=== PATIENT | male | born 1985 | race Caucasian/White ===

== ENCOUNTER 2017-05-15 12:54 | Inpatient (IN) ==
[2017-05-15] MEDS ORDERED: Ipratropium/Albuterol Neb 3 ML IH ONE (13:15)
--- NOTE | 2017-05-15 13:44 | Emergency Department Note ---
Disposition Clinical Impression: Hypoxia Pneumonia Qualifiers: Pneumonia type: due to unspecified organism Laterality: unspecified laterality Lung location: unspecified part of lung Qualified Code(s): J18.9 - Pneumonia, unspecified organism Sepsis Qualifiers: Sepsis type: sepsis due to unspecified organism Qualified Code(s): A41.9 - Sepsis, unspecified organism Disposition: Admitted As Inpatient Condition: Undetermined Referrals: Roberto Boudreaux MD [Primary Care Provider] - Forms: ED Satisfaction Letter Time of Disposition: 15:19 SOB HPI - General Chief Complaint: ED Shortness of Breath/Dyspnea Stated Complaint: Multiple complaints Time Seen by Provider: 05/15/17 13:10 Source: patient Mode of arrival: ambulatory Limitations: no limitations Nursing Notes Reviewed: Yes Vital Signs Reviewed: Yes - History of Present Illness 31-year-old male with history of chronic pain and arthritis of his back and bilateral lower extremities, arrives [facility] emergency department with ill feeling. He is having generalized myalgias, cough, nasal congestion, headache, subjective fevers and a mild shortness of breath. Patient states this started 2 days ago. Patient states this progressively got worse and he has been unable sleep. Patient denies any other complaints including unilateral leg swelling, chest pain, abdominal pain, nausea, vomiting , history of DVT or PE, recent surgeries or immobilizations. Pt Subjective Complaint: shortness of breath, cough Onset (ago): day(s) (2) Severity: mild, moderate Consistency/Duration: constant, gradually worsening Associated symptoms: Reports: fever, cough, wheezing, sputum production Treatment prior to arrival: none Cough present: Yes Cough Description: Productive Sputum production: Yes Sputum Amount: Small Sputum Color: Cream - Related Data Home oxygen amount: none Home Medications Medication Instructions Recorded Confirmed No Known Home Drugs 05/15/17 05/15/17 Allergies Allergy/AdvReac Type Severity Reaction Status Date / Time adhesive tape Allergy Rash Verified 05/15/17 13:06 All systems ED: reviewed and negative except as stated. Constitutional: Reports: fever, chills, weakness Eyes: Denies: vision change ENT ED: Reports: congestion. Denies: hearing loss Cardiovascular: Reports: dyspnea on exertion, orthopnea. Denies: chest pain, edema Respiratory: Reports: cough, dyspnea, wheezes, sputum production. Denies: hemoptysis, stridor Gastrointestinal: Denies: abdominal pain, nausea, vomiting Genitourinary: Denies: dysuria Musculoskeletal: Reports: arthralgia, myalgia. Denies: back pain, neck pain Integumentary: Denies: rash Neurological: Reports: headache. Denies: weakness, numbness, paresthesias, confusion Past Medical History - Past Medical History Attestation: Yes The following information was validated with the patient. Source: patient Medical history: Reports: other Surgical history: Reports: non-contributory, orthopedic, other (hip reconstructive surgery), other (tonsillectomy; kidney stent and removal) Psychiatric history: Reports: no psych history - Social History Smoking Status: Current every day smoker Smokeless Tobacco Status: No Alcohol use: Reports: none Drug use: Reports: none Physical Exam - General Limitations: no limitations General appearance: alert, in distress (mild respiratory) - Head Head exam: atraumatic, normocephalic, normal inspection - Eye Eye exam: Present: normal appearance, PERRL, EOMI - ENT ENT exam: normal exam, normal oropharynx, mucous membranes moist - Neck Neck exam: Present: normal inspection, full ROM, trachea midline - Chest Chest inspection: Present: normal inspection, symmetric chest wall rise - Respiratory Respiratory exam: Present: respiratory distress (mild), wheezes, other (Coarse breath sounds). Absent: accessory muscle use - Cardiovascular Cardiovascular exam: Present: normal rhythm, tachycardia, normal heart sounds - Abdominal Exam Abdominal exam: Present: soft, Non-Tender. Absent: tenderness, distention, guarding, rebound, rigidity - Extremities Exam Extremities exam: Present: normal inspection, full ROM. Absent: tenderness, pedal edema Course Vital Signs Temperature 98.7 F 05/15/17 13:02 Pulse Rate 106 05/15/17 13:02 Respiratory Rate 24 05/15/17 13:02 Blood Pressure 182/111 05/15/17 13:02 O2 Sat by Pulse Oximetry 86 05/15/17 13:02 Temperature 98.7 F 05/15/17 13:02 Pulse Rate 106 05/15/17 13:02 Respiratory Rate 24 05/15/17 13:48 Blood Pressure 182/111 05/15/17 13:02 O2 Sat by Pulse Oximetry 90 05/15/17 13:48 Oxygen Delivery Oxygen Delivery Room Air Shortness of Breath/Dyspnea - MDM Narrative Medical decision making narrative: Patient demonstrates findings consistent with a pneumonia in the perihilar region upon chest x-ray. In addition the patient was noted to be tachypneic and hypoxic as well as tachycardic. With these findings I am concerned about sepsis on this gentleman. Given the likely concomitance of influenza, I will administer IV doxycycline. We will admit the patient to the hospitalist service. The patient received 1 L IV fluid here in the emergency department. Patient agrees to plan and will be admitted to the hospitalist service. Accepted by Dr. Brown. - Lab Data Lab results reviewed: Yes I reviewed the patient's lab results. Result diagrams: 05/15/17 14:47 Lab Results 05/15/17 05/15/17 Range/Units 14:47 14:47 Sodium 143 (136-145) mEq/L Potassium 4.3 (3.5-4.5) mEq/L Chloride 102 (98-109) mEq/L Carbon Dioxide 30 H (19-29) mEq/L BUN 12 (8-26) mg/dL Creatinine 0.77 (0.72-1.25) mg/dL Est GFR ( Amer) > 60 (> 60) Est GFR (Non-Af Amer) > 60 (> 60) BUN/Creatinine Ratio 16 (6-26) Glucose 89 (70-99) mg/dL Calculated Osmolality 295 (280-300) Lactic Acid 1.0 (0.5-2.2) mmol/L Calcium 9.1 (8.6-10.8) mg/dL - Radiology Data Radiology results reviewed: Yes I reviewed the patient's radiology results. Attestation Statement - Attestation Attestation: I examined this patient and my medical decision-making was reviewed with the Resident Physician. I agree with the documented findings, disposition and treatment plan as described except to the extent set forth below. Meets SIRS but not qSOFA criteria. Still wheezing after first round of Duonebs, 92% on 2LNC, additional Albuterol ordered. Symptoms are classic influenza - pneumonia on CXR could be influenza, staph (in the setting of flu), or standard CAP - Doxy chosen to cover all of these. Accepted by hospitalist for admisison.
[2017-05-15] MEDS ORDERED: 0.9 % Sodium Chloride 1,000 ML IVC ONE (14:24)
[2017-05-15] MEDS ORDERED: Doxycycline 100 MG in 0.9 % Sodium Chloride Mini Bag 100 ML IVPB ONE (14:24)
[2017-05-15 15:08] LABS: BUN/Creatinine Ratio 16 (6-26); Blood Urea Nitrogen 12 mg/dL (8-26); Calcium 9.1 mg/dL (8.6-10.8); Carbon Dioxide 30 mEq/L (19-29); Chloride 102 mEq/L (98-109); Glucose 89 mg/dL (70-99); Osmolality,Calculated 295 (280-300); Potassium 4.3 mEq/L (3.5-4.5); Sodium 143 mEq/L (136-145); eGFR For African Americans > 60 (> 60); eGFR For Non-African Americans > 60 (> 60)
[2017-05-15] MEDS ORDERED: Albuterol 2.5 MG/3 ML NEBULIZER IH STA (15:52)
[2017-05-15] MEDS ORDERED: Naloxone 0.4 MG/ML INJ IVP PRN (20:19)
[2017-05-15] MEDS ORDERED: Ondansetron 4 MG/2 ML VIAL IVP PRN (20:19)
--- NOTE | 2017-05-15 20:25 | Internal Med History&Physical ---
Date of Encounter: 05/15/17 Time of Encounter: 20:15 Assessment and Plan (1) Pneumonia Current visit: Yes Status: Acute Community-acquired pneumonia, present on admission, likely bacterial Continue DuoNeb breathing treatment, empiric IV Rocephin, IV azithromycin and O2 via NC Cultures - pending Chest x-ray - perihilar airspace disease, likely infection or edema Cardiac telemetry, lives in a.m., monitor closely Qualifiers: Pneumonia type: due to unspecified organism Laterality: unspecified laterality Lung location: unspecified part of lung Qualified Code(s): J18.9 - Pneumonia, unspecified organism (2) Morbid obesity with BMI of 60.0-69.9, adult Current visit: Yes Status: Acute Obesity with BMI of 64.8 Advised lifestyle modification (3) DVT prophylaxis Current visit: Yes Status: Acute Heparin subcutaneous Internal Medicine - H&P: HPI Chief complaint: Shortness of breath and cough Admitted From: Emergency Dept Plans for Post Hospital Care: Home History of present illness: Mr. Zamora is a 31 year old male with no significant past medical history. Patient presents to the ED with complaints of shortness of breath, cough and sinus congestion. Examined in the room. Patient is awake and alert. Not in any distress. Able to provide history. No family members at bedside. Patient states his symptoms of cough and shortness of breath and sinus congestion started about 2-3 days ago. Symptoms are gradually worsening. Shortness of breath is worse with exertion. He also complains of subjective fever. He also has some associated wheezing. And states his cough is nonproductive. Patient denies chest pain or headache or dizziness. No other aggravating or alleviating factors. No other associated symptoms. No other acute complaints. Initial workup in the ED is negative. Chest x-ray shows perihilar airspace disease likely infection or edema. Patient is being admitted for community- acquired pneumonia. He will need IV antibiotics and breathing treatment. Patient has been explained about his condition and plan of care in detail. He understood and agreed. No unanswered questions. CODE STATUS full code. Past Med Surg Social Fam HX - Past Medical History Medical history: other Psychiatric history: no psych history - Past Surgical History Surgical History: orthopedic, other, other - Social History Smoking Status: Current every day smoker Smokeless Tobacco Status: No Alcohol use: none Drug use: none Internal Medicine - H&P: Meds No Known Home Drugs 05/15/17 [History] 3 Allergy/AdvReac Type Severity Reaction Status Date / Time adhesive tape Allergy Rash Verified 05/15/17 13:06 All Systems PM: A 10-system review of systems was performed and is negative for pertinent findings except as documented above in the HPI. - Constitutional Constitutional: fatigue, fever(s), no weakness - EENT Eyes: no blurry vision - Cardiovascular Cardiovascular ROS IM: dyspnea, dyspnea on exertion, no chest pain, no diaphoresis, no edema, no lightheadedness, no orthopnea, no palpitations, no syncope - Respiratory Respiratory: cough, dyspnea, dyspnea on exertion, wheezing, chest congestion, no hemoptysis - Gastrointestinal Gastrointestinal: no abdominal pain, no bloating, no cramping, no diarrhea, no hematemesis, no hematochezia, no loose stools, no nausea, no vomiting - Genitourinary Genitourinary ROS male: no dysuria - Neurological Neurological ROS: no abnormal gait, no confusion, no dizziness, no loss of vision, no numbness - Constitutional Vitals: Temp Pulse Resp BP Pulse Ox 97.3 F L 80 16 133/77 92 05/15/17 18:49 05/15/17 18:49 05/15/17 18:49 05/15/17 18:49 05/15/17 18:49 General appearance: Present: cooperative, A&O X 3, morbidly obese, pleasant, no acute distress, answers questions appropriately - Head Head exam: Present: atraumatic - Eye Eye exam: Present: EOMI - ENT ENT exam: Present: mucous membranes dry - Respiratory Respiratory exam: Present: wheezes (Bilateral). Absent: accessory muscle use, chest wall tenderness, rales, respiratory distress, rhonchi, tachypnea - Cardiovascular Cardiovascular exam: Present: RRR, +S1, +S2 - GI/Abdominal GI/Abdominal exam: Present: soft. Absent: distended, firm, guarding, tenderness - Extremities Exam Extremities exam: Present: pedal edema (Bilateral 2+ edema lower legs), radial pulses palpable and symmetrical. Absent: calf tenderness, cyanotic - Neurological Exam Neurological exam: Present: alert, oriented X3, no focal deficits. Absent: facial droop, speech deficit Internal Med - H&P Results - Labs CBC & Chem 7: 05/15/17 20:40 05/15/17 14:47
[2017-05-15 20:49] LABS: Basophils # 0.1 K/mcL (0.0-0.2); Basophils % 0.6 %; Eosinophils # 0.3 K/mcL (0.0-0.6); Hematocrit 52.7 % (37.5-50.1); Hemoglobin 16.3 g/dL (12.9-16.9); Immature Granulocytes % 0.7 % (0-4); Lymphocytes # 2.2 K/mcL (0.6-4.6); Lymphocytes % 26.1 %; Mean Corpuscular HGB Conc 30.9 g/dL (31.6-35.5); Mean Corpuscular Hemoglobin 27.8 pg (28.0-33.3); Mean Corpuscular Volume 89.8 fL (83.0-100.0); Mean Platelet Volume 9.2 fL (9.4-12.4); Monocytes # 0.8 K/mcL (0.0-1.3); Monocytes % 9.6 %; Platelet Count 162 K/mcL (140-400); Red Blood Count 5.87 M/mcL (4.19-5.50); Red Cell Distribution Width 13.6 % (11.5-14.5)
[2017-05-15] MEDS: cefTRIAXone 1,000 MG in Water for inj. (sterile) 10 ML IVP SCH (21:13)
[2017-05-15] MEDS: 0.9 % Sodium Chloride 1,000 ML IVC SCH (21:14)
[2017-05-15] MEDS: Acetaminophen 325 MG TABLET PO PRN (21:17)
[2017-05-15] MEDS: Azithromycin 500 MG in D5% in Water 250 ML IVPB SCH (21:17)
[2017-05-15] MEDS: *HR* Heparin 5,000 UNIT/ML VIAL SQ SCH (21:17)
[2017-05-15] MEDS: Ipratropium/Albuterol Neb 3 ML IH SCH (21:41)
[2017-05-16] MEDS: Ipratropium/Albuterol Neb 3 ML IH SCH ×7 (00:04→23:39)
[2017-05-16] MEDS: Nicotine 21 MG PATCH.TD24 TD SCH ×2 (00:27→09:29)
[2017-05-16] MEDS: *HR* Morphine 2 MG/ML SYRINGE IVP PRN (02:19)
[2017-05-16 04:31] LABS: Basophils # 0.1 K/mcL (0.0-0.2); Basophils % 0.7 %; Eosinophils # 0.2 K/mcL (0.0-0.6); Hemoglobin 16.6 g/dL (12.9-16.9); Immature Granulocytes % 0.8 % (0-4); Lymphocytes # 1.7 K/mcL (0.6-4.6); Lymphocytes % 18.8 %; Mean Corpuscular HGB Conc 31.3 g/dL (31.6-35.5); Mean Corpuscular Hemoglobin 28.6 pg (28.0-33.3); Mean Corpuscular Volume 91.4 fL (83.0-100.0); Mean Platelet Volume 9.2 fL (9.4-12.4); Monocytes # 0.8 K/mcL (0.0-1.3); Monocytes % 9.3 %; Neutrophils # 6.1 K/mcL (1.6-8.9); Platelet Count 149 K/mcL (140-400); Segmented Neutrophils % 68.4 %
[2017-05-16 04:41] LABS: BUN/Creatinine Ratio 18 (6-26); Blood Urea Nitrogen 15 mg/dL (8-26); Calcium 8.8 mg/dL (8.6-10.8); Carbon Dioxide 31 mEq/L (19-29); Chloride 98 mEq/L (98-109); Glucose 136 mg/dL (70-99); Magnesium 2.2 mg/dL (1.6-2.6); Osmolality,Calculated 297 (280-300); Potassium 4.6 mEq/L (3.5-4.5); Sodium 142 mEq/L (136-145); eGFR For African Americans > 60 (> 60); eGFR For Non-African Americans > 60 (> 60)
[2017-05-16] MEDS: *HR* Heparin 5,000 UNIT/ML VIAL SQ SCH ×3 (05:26→21:40)
[2017-05-16] MEDS: Famotidine 20 MG/2 ML VIAL IVP SCH ×2 (05:26→18:58)
[2017-05-16] MEDS: Acetaminophen 325 MG TABLET PO PRN ×2 (05:38→12:03)
--- NOTE | 2017-05-16 06:51 | Electrocardiograph Report ---
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
[2017-05-16] MEDS: 0.9 % Sodium Chloride 1,000 ML IVC SCH (08:04)
--- NOTE | 2017-05-16 08:29 | Internal Med Progress Note ---
<Sloan Nielson - Last Filed: 05/16/17 08:27> Date of Encounter: 05/16/17 Time of Encounter: 08:27 - Assessment and plan (1) Community acquired pneumonia Current Visit: Yes Status: Acute Assessment and plan: patient came in with complaint of shortness of breath, cough, sinus congestion CXR showed perihilar congestion, concern or pneumonia does not meet sepsis criteria at this time lactic acid 1 Plan: ceftriaxone/azithromycin day 2 wean off oxygen as tolerated BiPAP at night needs outpatient sleep study patient was desat earlier this morning, improved with DuoNebs keep DuoNebs scheduled for now. Qualifiers: Laterality: unspecified laterality Qualified Code(s): J18.9 - Pneumonia, unspecified organism (2) Morbid obesity with BMI of 60.0-69.9, adult Current Visit: Yes Status: Acute Assessment and plan: lifestyle modifications advised. could have component of sleep apnea (3) Tobacco abuse Current Visit: Yes Status: Acute Assessment and plan: patient has been smoking 1PPD for the psat 6-7 years Plan: smoking cessation advised nicotine patch PRN (4) DVT prophylaxis Current Visit: Yes Status: Acute Assessment and plan: heparin SQ - Subjective Interval history: 30M evluated at bedside. he denies nasuea, vomiting, diarrhea, fever, chills, chest pain. he admits to shortness of breath. he denies any further problems today. - Constitutional Vitals: Temp Pulse Resp BP Pulse Ox 98.7 F 90 18 158/87 96 05/16/17 04:49 05/16/17 04:49 05/16/17 08:04 05/16/17 04:49 05/16/17 08:04 General appearance: Present: cooperative, A&O X 3, morbidly obese, pleasant, no acute distress, answers questions appropriately Exam: morbidly obese - Head Head exam: Present: atraumatic, normocephalic - Neck Neck exam general surgery: Present: supple, trachea midline - Respiratory Respiratory exam: Present: CTAB - Cardiovascular Cardiovascular exam: Present: RRR, +S1, +S2 - GI/Abdominal GI/Abdominal exam: Present: distended, normal bowel sounds, soft, tenderness Additional comments: obese, striae present. - Extremities Exam Extremities exam: Absent: cyanotic, pedal edema Additional comments: venous stasis present. - Neurological Exam Neurological exam: Present: alert, oriented X3, no focal deficits - Psychiatric Psychiatric exam: Present: normal affect, normal mood - Skin Skin exam: Present: intact Internal Medicine: Result - Labs CBC & Chem 7: 05/16/17 04:08 05/16/17 04:08 Labs: Short CBC 05/15/17 05/16/17 Range/Units 20:40 04:08 WBC 8.3 8.9 (4.3-11.1) K/mcL Hgb 16.3 16.6 (12.9-16.9) g/dL Hct 52.7 H 53.0 H (37.5-50.1) % Plt Count 162 149 (140-400) K/mcL Neutrophils # 5.0 6.1 (1.6-8.9) K/mcL BMP 05/16/17 04:08 Sodium 142 Potassium 4.6 H Chloride 98 Carbon Dioxide 31 H BUN 15 Creatinine 0.83 Glucose 136 H Calcium 8.8 Consult Discharge Plan - Plan [place] [facility] [place] - <Rodolfo Osorio - Last Filed: 05/16/17 17:57> Date of Encounter: 05/16/17 - Assessment and plan (1) Acute respiratory failure with hypoxia Current Visit: Yes Status: Acute (2) Community acquired pneumonia Current Visit: Yes Status: Acute Qualifiers: Laterality: unspecified laterality Qualified Code(s): J18.9 - Pneumonia, unspecified organism (3) Tobacco abuse Current Visit: Yes Status: Acute (4) Cephalgia Current Visit: Yes Status: Acute Qualifiers: Headache type: tension-type Headache chronicity pattern: acute headache Intractability: intractable Qualified Code(s): G44.201 - Tension-type headache , unspecified, intractable (5) Morbid obesity with BMI of 60.0-69.9, adult Current Visit: Yes Status: Acute (6) TORIN (obstructive sleep apnea) Current Visit: Yes Status: Suspected - Constitutional Vitals: Temp Pulse Resp BP Pulse Ox 98.2 F 91 16 153/85 92 05/16/17 16:22 05/16/17 16:22 05/16/17 16:22 05/16/17 16:22 05/16/17 16:22 Internal Medicine: Result - Labs CBC & Chem 7: 05/16/17 04:08 12/06/17 04:08 Labs: Short CBC 05/15/17 05/16/17 Range/Units 20:40 04:08 WBC 8.3 8.9 (4.3-11.1) K/mcL Hgb 16.3 16.6 (12.9-16.9) g/dL Hct 52.7 H 53.0 H (37.5-50.1) % Plt Count 162 149 (140-400) K/mcL Neutrophils # 5.0 6.1 (1.6-8.9) K/mcL BMP 05/16/17 04:08 Sodium 142 Potassium 4.6 H Chloride 98 Carbon Dioxide 31 H BUN 15 Creatinine 0.83 Glucose 136 H Calcium 8.8 - Attending Attestation I examined this patient and my medical decision-making was reviewed with the Resident Physician on 05/16/17. I agree with the documented findings, disposition and treatment plan as described except to the extent set forth below. Mr Zamora is currently admitted for community acquired pneumonia. He most likely has TORIN as well. He remains moderate to high risk due to potential for worsening respiratory status. Mr Zamora is complaining of a headache. No fever or chills at this time. Remains dyspneic and hypoxic. Feels somewhat better sitting up on edge of bed. Still with cough as well. No GI issues. Exam Alert. Mod distress due to headache. Mucus membranes dry Heart reg and distant. Lungs diminished throughout. Abd soft. Obese I/P 1. Hypoxia - O2 sat was 86% on RA on admit. Supplemental oxygen ordered. 2. Pneumonia on IV abx 3. Cephalgia - PRN med. Check RIP. Further diagnoses and plan as above.
[2017-05-16] MEDS ORDERED: D5% in Water 1,000 ML IVC PRN (13:28)
[2017-05-16] MEDS ORDERED: Dextrose Gel 15 GM PO PRN ×2 (13:28)
[2017-05-16] MEDS ORDERED: *HR* Dextrose 50 % in Water (Syg) 50 ML SYRINGE IVP PRN (13:28)
[2017-05-16] MEDS: Ketorolac 15 MG/ML VIAL IVP PRN ×2 (14:37→21:55)
[2017-05-16] MEDS: Insulin LISPRO 300 UNITS/3 ML VIAL SQ SCH (16:30)
[2017-05-16] MEDS ORDERED: Insulin LISPRO 300 UNITS/3 ML VIAL SQ SCH (21:00)
[2017-05-16] MEDS: Azithromycin 500 MG in D5% in Water 250 ML IVPB SCH (21:41)
[2017-05-16] MEDS: cefTRIAXone 1,000 MG in Water for inj. (sterile) 10 ML IVP SCH (21:41)
[2017-05-17] MEDS: Ketorolac 15 MG/ML VIAL IVP PRN ×2 (03:24→11:37)
[2017-05-17] MEDS: Nicotine 21 MG PATCH.TD24 TD SCH (03:24)
[2017-05-17] MEDS: Ipratropium/Albuterol Neb 3 ML IH SCH ×3 (04:00→11:12)
[2017-05-17] MEDS: *HR* Heparin 5,000 UNIT/ML VIAL SQ SCH ×2 (05:45→13:38)
[2017-05-17] MEDS: Famotidine 20 MG/2 ML VIAL IVP SCH (05:45)
[2017-05-17 06:26] LABS: Basophils % 0.5 %; Eosinophils # 0.4 K/mcL (0.0-0.6); Eosinophils % 4.3 %; Hematocrit 49.5 % (37.5-50.1); Hemoglobin 15.6 g/dL (12.9-16.9); Immature Granulocytes % 0.5 % (0-4); Lymphocytes # 2.3 K/mcL (0.6-4.6); Lymphocytes % 26.7 %; Mean Corpuscular HGB Conc 31.5 g/dL (31.6-35.5); Mean Corpuscular Hemoglobin 28.5 pg (28.0-33.3); Mean Corpuscular Volume 90.3 fL (83.0-100.0); Mean Platelet Volume 9.1 fL (9.4-12.4); Monocytes # 0.5 K/mcL (0.0-1.3); Monocytes % 6.3 %; Neutrophils # 5.2 K/mcL (1.6-8.9); Platelet Count 149 K/mcL (140-400); Red Blood Count 5.48 M/mcL (4.19-5.50); Red Cell Distribution Width 13.5 % (11.5-14.5); Segmented Neutrophils % 61.7 %
[2017-05-17 06:30] LABS: Hemoglobin A1C 5.6 %
[2017-05-17 07:03] LABS: Bilirubin,Urine Negative (Negative); Blood,Urine Negative (Negative); Clarity,Urine Clear (Clear); Color,Urine Yellow (Yellow); Glucose,Urine (UA) Normal (Normal); Ketones,Urine Negative (Negative); Leukocyte Esterase,Urine Negative (Negative); Nitrite,Urine Negative (Negative); Protein,Urine Negative (Neg-Trace); Specific Gravity,Urine 1.028 (1.010-1.025); Urobilinogen,Urine Normal (Normal)
[2017-05-17] MEDS: *HR* Morphine 2 MG/ML SYRINGE IVP PRN (07:43)
[2017-05-17] MEDS: Insulin LISPRO 300 UNITS/3 ML VIAL SQ SCH ×2 (07:44→11:33)
[2017-05-17 08:13] LABS: BUN/Creatinine Ratio 21 (6-26); Blood Urea Nitrogen 16 mg/dL (8-26); Calcium 9.1 mg/dL (8.6-10.8); Carbon Dioxide 31 mEq/L (19-29); Chloride 100 mEq/L (98-109); Glucose 124 mg/dL (70-99); Osmolality,Calculated 301 (280-300); Potassium 4.6 mEq/L (3.5-4.5); Sodium 144 mEq/L (136-145); eGFR For African Americans > 60 (> 60); eGFR For Non-African Americans > 60 (> 60)
[2017-05-17 10:54] VITALS: BP 173/96
--- NOTE | 2017-05-17 13:41 | Discharge Summary ---
<Sloan Nielson - Last Filed: 05/17/17 14:51> Date of Encounter: 05/17/17 Time of Encounter: 13:35 - Discharge Diagnosis (1) Community acquired pneumonia Priority: Primary Status: Acute Qualifiers: Laterality: unspecified laterality Qualified Code(s): J18.9 - Pneumonia, unspecified organism (2) Morbid obesity with BMI of 60.0-69.9, adult Priority: Secondary Status: Acute (3) Tobacco abuse Priority: Secondary Status: Acute (4) DVT prophylaxis Priority: Secondary Status: Acute - Discharge Medications Prescriptions: Amoxicillin/Clavulanate [Augmentin] 875 mg PO BIDWM #10 tablet Azithromycin [Zithromax Tri-Preston] 500 mg PO DAILY #1 tablet GuaiFENesin ER [Mucinex] 1,200 mg PO BID #30 tbbp.12hr Nicotine Patch [Nicoderm] 21 mg TD DAILY #30 patch.td24 Home Medications: Amoxicillin/Clavulanate [Augmentin] 875 mg PO BIDWM #10 tablet 05/17/17 [Rx] Azithromycin [Zithromax Tri-Preston] 500 mg PO DAILY #1 tablet 05/17/17 [Rx] GuaiFENesin ER [Mucinex] 1,200 mg PO BID #30 tbbp.12hr 05/17/17 [Rx] Nicotine Patch [Nicoderm] 21 mg TD DAILY #30 patch.td24 05/17/17 [Rx] Allergies/Adverse Reactions: 3 Allergy/AdvReac Type Severity Reaction Status Date / Time adhesive tape Allergy Rash Verified 05/15/17 13:06 Date of admission: 05/15/17 20:19 Primary care physician: Roberto Boudreaux MD Consults: 05/16/17 07:28 Consult to Wick Tender [CONS] Routine Reason for SW Consult: pt states he is homeless. lives in [facility] resources. 05/16/17 07:54 Consult to Respiratory Therapy [CONS] Routine Reason for Consult: low 02 sats when sleeping, morbid obesity, dx of pneumonia Time Notified: 07:55 Call Completed: Yes Discharging clinician: Sloan Nielson Anticipated date of discharge: 05/17/17 - Patient Status Disposition: Home, Self-Care Condition: Fair Functional capacity at discharge: independent ambulation Overall status at discharge: patient is progressing back to baseline - Discharge Instructions Follow Up With: Roberto Boudreaux MD [Primary Care Provider] - 05/30/17 4:30 pm Additional Instructions: follow up with PCP within one week of discharge you will need outpatient sleep study done return to the emergency department if you develop fever, chills, chest pain, shortness of breath please finish your antibiotics as prescribed. - Diet and Activity Activity: increase activity as tolerated Diet: low fat, low cholesterol Hospital course: Mr. Zamora is a 31 year old male with no significant PMhx. Patient [facility]17 with chief complaint of shortness of breath, cough, sinus congestion x2-3 days. Patient was admitted to the hospital for community acquired pneumonia. CXR showed perihilar airspace disease. Patient was started on antibiotics and breathing treatments. By day 2 of his hospitalization, patient's breathing had significantly improved. He did not require any further oxygen via nasal canula. He was anxious to go home. patient was counseled extensively on lifestyle modifications and tobacco cessation. He was also told that he will need an outpatient sleep study to rule out obstructive sleep apnea. patient had no acute events during his hospitalization and was discharged home in stable condition. Patient was offered overnight BiPAP qualification during his hospitalization, but he declined. Plan: follow up with PCP within one week of discharge you will need outpatient sleep study done return to the emergency department if you develop fever, chills, chest pain, shortness of breath please finish your antibiotics as prescribed. Time spent discussing smoking cessation with patient: more than 10 minutes - Time Spent with Patient Total time spent providing and/or coordinating discharge services: Greater than 30 minutes - Constitutional Vitals: Temp Pulse Resp BP Pulse Ox 97.9 F 86 16 173/96 91 05/17/17 10:49 05/17/17 10:49 05/17/17 11:12 05/17/17 10:49 05/17/17 11:12 General appearance: Present: cooperative, A&O X 3, morbidly obese, pleasant, no acute distress, answers questions appropriately - Head Head exam: Present: atraumatic, normocephalic - Neck Neck exam general surgery: Present: supple, trachea midline - Respiratory Respiratory exam: Present: decreased breath sounds - Cardiovascular Cardiovascular exam: Present: RRR, +S1, +S2 - GI/Abdominal GI/Abdominal exam: Present: normal bowel sounds, soft. Absent: distended, tenderness - Extremities Exam Extremities exam: Absent: cyanotic, pedal edema - Neurological Exam Neurological exam: Present: alert, oriented X3, no focal deficits - Psychiatric Psychiatric exam: Present: anxious - Skin Skin exam: Present: intact <Rodolfo Osorio - Last Filed: 05/17/17 16:02> Date of Encounter: 05/17/17 - Discharge Diagnosis (1) Acute respiratory failure with hypoxia Priority: Primary Status: Acute (2) Community acquired pneumonia Status: Acute Qualifiers: Laterality: unspecified laterality Qualified Code(s): J18.9 - Pneumonia, unspecified organism (3) Tobacco abuse Status: Acute (4) Cephalgia Priority: Secondary Status: Chronic Qualifiers: Headache type: tension-type Headache chronicity pattern: chronic headache Intractability: intractable Qualified Code(s): G44.221 - Chronic tension- type headache, intractable (5) Morbid obesity with BMI of 60.0-69.9, adult Status: Acute (6) TORIN (obstructive sleep apnea) Priority: Secondary Status: Suspected Date of admission: 05/15/17 20:19 Primary care physician: Roberto Boudreaux MD Consults: 05/16/17 07:28 Consult to Wick Tender [CONS] Routine Reason for SW Consult: pt states he is homeless. lives in [facility]. [facility]. 05/16/17 07:54 Consult to Respiratory Therapy [CONS] Routine Reason for Consult: low 02 sats when sleeping, morbid obesity, dx of pneumonia Time Notified: 07:55 Call Completed: Yes Hospital course: Mr. Zamora is a 31 year old male - Time Spent with Patient Total time spent providing and/or coordinating discharge services: 38min - Constitutional Vitals: Temp Pulse Resp BP Pulse Ox 97.9 F 86 16 173/96 91 05/17/17 10:49 05/17/17 10:49 05/17/17 11:12 05/17/17 10:49 05/17/17 11:12 - Attending Attestation I examined this patient and my medical decision-making was reviewed with the Resident Physician on 05/17/17. I agree with the documented findings, disposition and treatment plan as described except to the extent set forth below. Mr Zamora has been hospitalized for acute pneumonia and TORIN. He has improved overnight and is now afebrile with stable vitals. He is to have outpatient follow up and was planning to discuss his chronic headaches and need for sleep study. He is concerned as his grandmother was admitted to hospital for CVA in [place] yesterday and he is going to drive there. He is also having issues with R nares feeling clogged. He cannot wear bipap here (noise caused headache) . Exam Alert. Comfortable today Mucus membranes dry Heart reg Lungs without wheeze or rhonchi now Abd soft Plan D/C home today Complete abx course Follow with PCP for sleep study and work up of chronic headaches Advised nasal saline spray for nasal congestion.
== END 2017-05-17 13:55 | disposition home or self-care (01) | DRG 139 ==
LOC: EMEROO 12:54 → 3ANU 12:54
PROVIDERS: ADMIT Hospitalist; ATTEND Internal Medicine

== ENCOUNTER 2017-10-17 21:54 | Observation (INO) ==
[2017-10-17 23:36] LABS: Basophils # 0.1 K/mcL (0.0-0.2); Basophils % 0.5 %; Eosinophils # 0.3 K/mcL (0.0-0.6); Eosinophils % 3.1 %; Hemoglobin 16.6 g/dL (12.9-16.9); Immature Granulocytes % 0.6 % (0-4); Lymphocytes # 1.7 K/mcL (0.6-4.6); Lymphocytes % 15.6 %; Mean Corpuscular HGB Conc 33.2 g/dL (31.6-35.5); Mean Corpuscular Volume 90.3 fL (83.0-100.0); Mean Platelet Volume 9.8 fL (9.4-12.4); Monocytes # 0.7 K/mcL (0.0-1.3); Monocytes % 6.5 %; Platelet Count 177 K/mcL (140-400); Red Blood Count 5.54 M/mcL (4.19-5.50); Red Cell Distribution Width 13.4 % (11.5-14.5); Segmented Neutrophils % 73.7 %
[2017-10-17 23:46] LABS: Alanine Aminotransferase 19 Units/L (7-52); Albumin 3.8 g/dL (3.5-5.7); Albumin/Globulin Ratio 1.7 (1.1-2.2); Alkaline Phosphatase 63 Units/L (34-104); Aspartate Amino Transferase 13 Units/L (13-39); BUN/Creatinine Ratio 19 (6-26); Bilirubin,Direct 0.1 mg/dL (0.0-0.2); Bilirubin,Indirect 0.3 mg/dL (0.0-1.2); Bilirubin,Total 0.4 mg/dL (0.3-1.0); Blood Urea Nitrogen 15 mg/dL (6-20); Calcium 9.1 mg/dL (8.6-10.3); Carbon Dioxide 33 mEq/L (23-29); Chloride 103 mEq/L (98-107); Globulin 2.3 g/dL (2.4-3.5); Glucose 181 mg/dL (70-105); Osmolality,Calculated 305 (280-300); Potassium 3.7 mEq/L (3.5-5.1); Sodium 145 mEq/L (136-145); Total Protein 6.1 g/dL (6.4-8.9); eGFR For African Americans > 60 (> 60); eGFR For Non-African Americans > 60 (> 60)
[2017-10-18 00:15] LABS: Bilirubin,Urine Negative (Negative); Blood,Urine Negative (Negative); Clarity,Urine Clear (Clear); Color,Urine Yellow (Yellow); Glucose,Urine (UA) Normal (Normal); Ketones,Urine Negative (Negative); Leukocyte Esterase,Urine Negative (Negative); Nitrite,Urine Negative (Negative); Protein,Urine Trace mg/dL (Neg-Trace); Specific Gravity,Urine 1.026 (1.010-1.025); Urobilinogen,Urine Normal (Normal)
[2017-10-18 00:19] LABS: Bacteria,Urine None Seen per hpf (None-Few); Hyaline Casts,Urine None Seen per lpf (None-Few); RBC,Urine 0-3 per hpf (0-3); Squamous Epithelial Cell,Urine Moderate per lpf (None-Few); WBC,Urine 0-3 per hpf (0-3)
[2017-10-18] MEDS ORDERED: Furosemide 40 MG/4 ML VIAL IVP STA (00:42)
--- NOTE | 2017-10-18 01:14 | Emergency Department Note ---
Disposition Clinical Impression: Anasarca, Hypoxia, Pulmonary vascular congestion Fluid overload Qualifiers: Hypervolemia type: unspecified Qualified Code(s): E87.70 - Fluid overload, unspecified Disposition: Admitted As Inpatient Condition: Good Referrals: Roberto Boudreaux MD [Primary Care Provider] - General Adult HPI - General Chief complaint: ED General Medical Stated complaint: Swelling Time Seen by Provider: 10/17/17 22:45 Source: patient Limitations: no limitations Nursing Notes Reviewed: Yes Vital Signs Reviewed: Yes - History of Present Illness HPI Narrative: Patient presents today for evaluation of swelling. Patient states that he was recently seen here in the hospital in transfer to [facility] secondary to concern for cellulitis and not able to fit in our CT scanner. Patient was unable to fit in her CT scan are as well however was treated for cellulitis with vancomycin and Zosyn. The patient states that he was discharged with antibiotics which on discharge summary appear to be doxycycline. He states that his redness is abdomen is chronic low which has typically changed in color. His concern is that his abdomen which normally fits underneath his shirt is significantly more edematous. He presses on his abdomen and is able to his fingerprints. Pain Scale: 8 - Related Data Home Medications Medication Instructions Recorded Confirmed Aleve 08/13/17 Imitrex 08/13/17 Protonix 08/13/17 Vicodin 08/13/17 Previous Rx's Medication Instructions Recorded Sulfamethoxazole/Trimeth DS 1 each PO BID #14 tablet 08/13/17 [Bactrim DS] Allergies Allergy/AdvReac Type Severity Reaction Status Date / Time adhesive tape Allergy Rash Verified 10/15/17 10:19 Review of Systems: CONSTITUTIONAL: Generalized swelling No weight loss, fever, chills, weakness or fatigue. HEENT: Eyes: No visual changes. Ears, Nose, Throat: No hearing loss, difficulty talking or unable to swallow. SKIN: No rash or itching. CARDIOVASCULAR: No chest pain, chest pressure or chest discomfort. RESPIRATORY: No shortness of breath, cough or sputum. GASTROINTESTINAL: No anorexia, nausea, vomiting or diarrhea. No abdominal pain or blood. GENITOURINARY: No burning on urination or hematuria. NEUROLOGICAL: No headache, dizziness, syncope, paralysis, ataxia, numbness or tingling in the extremities. No change in bowel or bladder control. MUSCULOSKELETAL: Chronic back pain Past Medical History - Past Medical History Medical history: Reports: arthritis, asthma, COPD, migraine Surgical history: Reports: orthopedic, other, other Psychiatric history: Reports: no psych history - Social History Smoking Status: Current every day smoker Smokeless Tobacco Status: No Alcohol use: Reports: none Drug use: Reports: none Physical Exam General: Well appearing, nontoxic, no acute distress Head: Normocephalic Atraumatic Eyes: PERRL, EOMI ENT: Airway patent, no stridor Neck: supple, no meningismus Chest: Mild rales Cardiac: Regular rate and rhythm, no murmurs, rubs or gallops; pitting edema to the lower extremities Abdomen: Pitting edema to the abdomen soft, nontender, nondistended; no guarding , rebound, or tenderness to percussion Musculoskeletal: Calves symmetric, nontender, no palpable cord Skin: No rash, normal skin tone Neuro: Alert and Oriented to person, place, and time; No focal deficit, CN 2-12 symmetric and intact - General Limitations: no limitations General appearance: alert, in no apparent distress Course - Reevaluation(s) Reevaluation #1: Patient's discharge summary shows evaluation of cellulitis. Patient did receive antibiotics and fluid within the emergency department. Patient is hypoxic at 84%. Patient does not complain of shortness of breath or hypoxic type symptoms. Patient is placed on 2 L nasal cannula with improvement in the 90s. Chest x-ray shows mild pulmonary vascular congestion. Patient will be admitted for hypoxia and fluid overload. - Consultations Consultation #1: Discussed the hospitalist. Patient accepted for admission. Vital Signs Temperature 98.3 F 10/17/17 22:28 Pulse Rate 109 10/17/17 22:28 Respiratory Rate 24 10/17/17 22:28 Blood Pressure 145/90 10/17/17 22:28 O2 Sat by Pulse Oximetry 89 10/17/17 22:28 Temperature 98.3 F 10/17/17 22:28 Pulse Rate 120 10/18/17 00:53 Respiratory Rate 18 10/18/17 00:53 Blood Pressure 140/78 10/18/17 00:53 O2 Sat by Pulse Oximetry 89 10/18/17 00:53 Oxygen Delivery Oxygen Delivery Room Air Medical Decision Making - Lab Data Result diagrams: 10/17/17 22:44 10/17/17 22:44 Lab Results 10/17/17 10/17/1710/17/18 Range/Units 22:44 22:44 22:44 WBC 10.8 (4.3-11.1) K/mcL RBC 5.54 H (4.19-5.50) M/mcL Hgb 16.6 D (12.9-16.9) g/dL Hct 50.0 (37.5-50.1) % MCV 90.3 (83.0-100.0) fL MCH 30.0 (28.0-33.3) pg MCHC 33.2 (31.6-35.5) g/dL RDW 13.4 (11.5-14.5) % Plt Count 177 (140-400) K/mcL MPV 9.8 (9.4-12.4) fL Immature Gran % 0.6 (0-4) % Seg Neutrophils % 73.7 % Lymphocytes % 15.6 % Monocytes % 6.5 % Eosinophils % 3.1 % Basophils % 0.5 % Neutrophils # 8.0 (1.6-8.9) K/mcL Lymphocytes # 1.7 (0.6-4.6) K/mcL Monocytes # 0.7 (0.0-1.3) K/mcL Eosinophils # 0.3 (0.0-0.6) K/mcL Basophils # 0.1 (0.0-0.2) K/mcL Sodium 145 (136-145) mEq/L Potassium 3.7 (3.5-5.1) mEq/L Chloride 103 (98-107) mEq/L Carbon Dioxide 33 H (23-29) mEq/L BUN 15 (6-20) mg/dL Creatinine 0.81 (0.70-1.30) mg/dL Est GFR ( Amer) > 60 (> 60) Est GFR (Non-Af Amer) > 60 (> 60) BUN/Creatinine Ratio 19 (6-26) Glucose 181 H (70-105) mg/dL Calculated Osmolality 305 H (280-300) Calcium 9.1 (8.6-10.3) mg/dL Total Bilirubin 0.4 (0.3-1.0) mg/dL Direct Bilirubin 0.1 (0.0-0.2) mg/dL Indirect Bilirubin 0.3 (0.0-1.2) mg/dL AST 13 (13-39) Units/L ALT 19 (7-52) Units/L Alkaline Phosphatase 63 (34-104) Units/L Troponin I 0.03 (< 0.04) ng/mL B-Natriuretic Peptide (Less than 100) pg/mL Serum Total Protein 6.1 L (6.4-8.9) g/dL Albumin 3.8 (3.5-5.7) g/dL Globulin 2.3 L (2.4-3.5) g/dL Albumin/Globulin Ratio 1.7 (1.1-2.2) Urine Color (Yellow) Urine Clarity (Clear) Urine pH (5.0-8.0) pH Units Ur Specific [place] (1.010-1.025) Urine Protein (Neg-Trace) mg/dL Urine Glucose (UA) (Normal) mg/dL Urine Ketones (Negative) mg/dL Urine Blood (Negative) Urine Nitrite (Negative) Urine Bilirubin (Negative) Urine Urobilinogen (Normal) mg/dL Ur Leukocyte Esterase (Negative) Urine Microscopic RBC (0-3) per hpf Urine Microscopic WBC (0-3) per hpf Ur Squamous Epith Cells (None-Few) per lpf Urine Bacteria (None-Few) per hpf Hyaline Casts (None-Few) per lpf Ur Culture Indicated? (NO) 10/17/17 10/18/17 Range/Units 22:44 00:05 WBC (4.3-11.1) K/mcL RBC (4.19-5.50) M/mcL Hgb (12.9-16.9) g/dL Hct (37.5-50.1) % MCV (83.0-100.0) fL MCH (28.0-33.3) pg MCHC (31.6-35.5) g/dL RDW (11.5-14.5) % Plt Count (140-400) K/mcL MPV (9.4-12.4) fL Immature Gran % (0-4) % Seg Neutrophils % % Lymphocytes % % Monocytes % % Eosinophils % % Basophils % % Neutrophils # (1.6-8.9) K/mcL Lymphocytes # (0.6-4.6) K/mcL Monocytes # (0.0-1.3) K/mcL Eosinophils # (0.0-0.6) K/mcL Basophils # (0.0-0.2) K/mcL Sodium (136-145) mEq/L Potassium (3.5-5.1) mEq/L Chloride (98-107) mEq/L Carbon Dioxide (23-29) mEq/L BUN (6-20) mg/dL Creatinine (0.70-1.30) mg/dL Est GFR ( Amer) (> 60) Est GFR (Non-Af Amer) (> 60) BUN/Creatinine Ratio (6-26) Glucose (70-105) mg/dL Calculated Osmolality (280-300) Calcium (8.6-10.3) mg/dL Total Bilirubin (0.3-1.0) mg/dL Direct Bilirubin (0.0-0.2) mg/dL Indirect Bilirubin (0.0-1.2) mg/dL AST (13-39) Units/L ALT (7-52) Units/L Alkaline Phosphatase (34-104) Units/L Troponin I (< 0.04) ng/mL B-Natriuretic Peptide 35 (Less than 100) pg/mL Serum Total Protein (6.4-8.9) g/dL Albumin (3.5-5.7) g/dL Globulin (2.4-3.5) g/dL Albumin/Globulin Ratio (1.1-2.2) Urine Color Yellow (Yellow) Urine Clarity Clear (Clear) Urine pH 7.0 (5.0-8.0) pH Units Ur Specific [place] 1.026 H (1.010-1.025) Urine Protein Trace (Neg-Trace) mg/dL Urine Glucose (UA) Normal (Normal) mg/dL Urine Ketones Negative (Negative) mg/dL Urine Blood Negative (Negative) Urine Nitrite Negative (Negative) Urine Bilirubin Negative (Negative) Urine Urobilinogen Normal (Normal) mg/dL Ur Leukocyte Esterase Negative (Negative) Urine Microscopic RBC 0-3 (0-3) per hpf Urine Microscopic WBC 0-3 (0-3) per hpf Ur Squamous Epith Cells Moderate H (None-Few) per lpf Urine Bacteria None Seen (None-Few) per hpf Hyaline Casts None Seen (None-Few) per lpf Ur Culture Indicated? NO (NO)
--- NOTE | 2017-10-18 01:44 | Emergency Department Note ---
Disposition Clinical Impression: Anasarca, Hypoxia, Pulmonary vascular congestion Fluid overload Qualifiers: Hypervolemia type: unspecified Qualified Code(s): E87.70 - Fluid overload, unspecified Disposition: Admitted As Inpatient Condition: Good General Adult HPI - General Chief complaint: ED General Medical Stated complaint: Swelling Time Seen by Provider: 10/17/17 22:45 Source: patient Limitations: no limitations Nursing Notes Reviewed: Yes Vital Signs Reviewed: Yes - History of Present Illness Pain Scale: 8 - Related Data Home Medications Medication Instructions Recorded Confirmed Aleve 08/13/17 Imitrex 08/13/17 Protonix 08/13/17 Vicodin 08/13/17 Previous Rx's Medication Instructions Recorded Sulfamethoxazole/Trimeth DS 1 each PO BID #14 tablet 08/13/17 [Bactrim DS] Allergies Allergy/AdvReac Type Severity Reaction Status Date / Time adhesive tape Allergy Rash Verified 10/15/17 10:19 Past Medical History - Past Medical History Medical history: Reports: arthritis, asthma, COPD, migraine Surgical history: Reports: orthopedic, other, other Psychiatric history: Reports: no psych history - Social History Smoking Status: Current every day smoker Smokeless Tobacco Status: No Alcohol use: Reports: none Drug use: Reports: none Physical Exam - General Limitations: no limitations General appearance: alert, in no apparent distress Course Vital Signs Temperature 98.3 F 10/17/17 22:28 Pulse Rate 109 10/17/17 22:28 Respiratory Rate 24 10/17/17 22:28 Blood Pressure 145/90 10/17/17 22:28 O2 Sat by Pulse Oximetry 89 10/17/17 22:28 Temperature 98.3 F 10/17/17 22:28 Pulse Rate 120 10/18/17 00:53 Respiratory Rate 18 10/18/17 00:53 Blood Pressure 140/78 10/18/17 00:53 O2 Sat by Pulse Oximetry 89 10/18/17 00:53 Oxygen Delivery Oxygen Delivery Room Air Medical Decision Making - Lab Data Result diagrams: 10/17/17 22:44 10/17/17 22:44 Lab Results 10/17/17 10/17/17 10/17/17 Range/Units 22:44 22:44 22:44 WBC 10.8 (4.3-11.1) K/mcL RBC 5.54 H (4.19-5.50) M/mcL Hgb 16.6 D (12.9-16.9) g/dL Hct 50.0 (37.5-50.1) % MCV 90.3 (83.0-100.0) fL MCH 30.0 (28.0-33.3) pg MCHC 33.2 (31.6-35.5) g/dL RDW 13.4 (11.5-14.5) % Plt Count 177 (140-400) K/mcL MPV 9.8 (9.4-12.4) fL Immature Gran % 0.6 (0-4) % Seg Neutrophils % 73.7 % Lymphocytes % 15.6 % Monocytes % 6.5 % Eosinophils % 3.1 % Basophils % 0.5 % Neutrophils # 8.0 (1.6-8.9) K/mcL Lymphocytes # 1.7 (0.6-4.6) K/mcL Monocytes # 0.7 (0.0-1.3) K/mcL Eosinophils # 0.3 (0.0-0.6) K/mcL Basophils # 0.1 (0.0-0.2) K/mcL Sodium 145 (136-145) mEq/L Potassium 3.7 (3.5-5.1) mEq/L Chloride 103 (98-107) mEq/L Carbon Dioxide 33 H (23-29) mEq/L BUN 15 (6-20) mg/dL Creatinine 0.81 (0.70-1.30) mg/dL Est GFR ( Amer) > 60 (> 60) Est GFR (Non-Af Amer) > 60 (> 60) BUN/Creatinine Ratio 19 (6-26) Glucose 181 H (70-105) mg/dL Calculated Osmolality 305 H (280-300) Calcium 9.1 (8.6-10.3) mg/dL Total Bilirubin 0.4 (0.3-1.0) mg/dL Direct Bilirubin 0.1 (0.0-0.2) mg/dL Indirect Bilirubin 0.3 (0.0-1.2) mg/dL AST 13 (13-39) Units/L ALT 19 (7-52) Units/L Alkaline Phosphatase 63 (34-104) Units/L Troponin I 0.03 (< 0.04) ng/mL B-Natriuretic Peptide (Less than 100) pg/mL Serum Total Protein 6.1 L (6.4-8.9) g/dL Albumin 3.8 (3.5-5.7) g/dL Globulin 2.3 L (2.4-3.5) g/dL Albumin/Globulin Ratio 1.7 (1.1-2.2) Urine Color (Yellow) Urine Clarity (Clear) Urine pH (5.0-8.0) pH Units Ur Specific [place] (1.010-1.025) Urine Protein (Neg-Trace) mg/dL Urine Glucose (UA) (Normal) mg/dL Urine Ketones (Negative) mg/dL Urine Blood (Negative) Urine Nitrite (Negative) Urine Bilirubin (Negative) Urine Urobilinogen (Normal) mg/dL Ur Leukocyte Esterase (Negative) Urine Microscopic RBC (0-3) per hpf Urine Microscopic WBC (0-3) per hpf Ur Squamous Epith Cells (None-Few) per lpf Urine Bacteria (None-Few) per hpf Hyaline Casts (None-Few) per lpf Ur Culture Indicated? (NO) 10/17/17 10/18/17 Range/Units 22:44 00:05 WBC (4.3-11.1) K/mcL RBC (4.19-5.50) M/mcL Hgb (12.9-16.9) g/dL Hct (37.5-50.1) % MCV (83.0-100.0) fL MCH (28.0-33.3) pg MCHC (31.6-35.5) g/dL RDW (11.5-14.5) % Plt Count (140-400) K/mcL MPV (9.4-12.4) fL Immature Gran % (0-4) % Seg Neutrophils % % Lymphocytes % % Monocytes % % Eosinophils % % Basophils % % Neutrophils # (1.6-8.9) K/mcL Lymphocytes # (0.6-4.6) K/mcL Monocytes # (0.0-1.3) K/mcL Eosinophils # (0.0-0.6) K/mcL Basophils # (0.0-0.2) K/mcL Sodium (136-145) mEq/L Potassium (3.5-5.1) mEq/L Chloride (98-107) mEq/L Carbon Dioxide (23-29) mEq/L BUN (6-20) mg/dL Creatinine (0.70-1.30) mg/dL Est GFR ( Amer) (> 60) Est GFR (Non-Af Amer) (> 60) BUN/Creatinine Ratio (6-26) Glucose (70-105) mg/dL Calculated Osmolality (280-300) Calcium (8.6-10.3) mg/dL Total Bilirubin (0.3-1.0) mg/dL Direct Bilirubin (0.0-0.2) mg/dL Indirect Bilirubin (0.0-1.2) mg/dL AST (13-39) Units/L ALT (7-52) Units/L Alkaline Phosphatase (34-104) Units/L Troponin I (< 0.04) ng/mL B-Natriuretic Peptide 35 (Less than 100) pg/mL Serum Total Protein (6.4-8.9) g/dL Albumin (3.5-5.7) g/dL Globulin (2.4-3.5) g/dL Albumin/Globulin Ratio (1.1-2.2) Urine Color Yellow (Yellow) Urine Clarity Clear (Clear) Urine pH 7.0 (5.0-8.0) pH Units Ur Specific [place] 1.026 H (1.010-1.025) Urine Protein Trace (Neg-Trace) mg/dL Urine Glucose (UA) Normal (Normal) mg/dL Urine Ketones Negative (Negative) mg/dL Urine Blood Negative (Negative) Urine Nitrite Negative (Negative) Urine Bilirubin Negative (Negative) Urine Urobilinogen Normal (Normal) mg/dL Ur Leukocyte Esterase Negative (Negative) Urine Microscopic RBC 0-3 (0-3) per hpf Urine Microscopic WBC 0-3 (0-3) per hpf Ur Squamous Epith Cells Moderate H (None-Few) per lpf Urine Bacteria None Seen (None-Few) per hpf Hyaline Casts None Seen (None-Few) per lpf Ur Culture Indicated? NO (NO) Attestation Statement - Attestation Attestation: I, Emigdio Jernigan MD, personally evaluated this patient and discussed their management with the resident physician. I reviewed the resident's note and agree with the documented findings, medical decision making, and plan of care. 32-year-old male presents to the emergency department with a complaint of increased swelling of his abdomen and lower extremities. He complains of redness and pain in the lower abdominal wall especially the suprapubic region. Patient was seen here a few days ago for these complaints and was transferred to [facility]. Due to his morbid obesity they were unable to obtain a CT scan. There was some concern initially about necrotizing fasciitis however patient received IV antibiotics and they did not feel there was any signs of necrotizing fasciitis while patient was [facility]. He was discharged yesterday and presents here tonight complaining of increased pain and swelling since being discharged yesterday. He denies any fever. He has been able to urinate without difficulty. On examination patient is a morbidly obese male in no acute distress. He is alert and oriented 3. There is no cyanosis or diaphoresis. Breath sounds are clear and equal bilaterally. Heart regular rate and rhythm. Abdomen is soft with normal bowel sounds. There is diffuse erythema of the lower abdominal wall especially in the suprapubic region with some tenderness and induration in this area. No palpable fluctuance. There is 2-3+ pitting edema of the lower extremities and abdominal wall. Labs reviewed. Chest x-ray shows some mild central pulmonary vascular congestion. The hospitalist, Dr. Pierce, was consulted and accepted admission of the patient.
[2017-10-18] MEDS ORDERED: Naloxone 0.4 MG/ML INJ IVP PRN (01:50)
[2017-10-18] MEDS: Acetaminophen 325 MG TABLET PO PRN ×2 (02:48→23:44)
[2017-10-18 06:10] LABS: BUN/Creatinine Ratio 23 (6-26); Blood Urea Nitrogen 15 mg/dL (6-20); Calcium 9.4 mg/dL (8.6-10.3); Carbon Dioxide 33 mEq/L (23-29); Chloride 102 mEq/L (98-107); Glucose 114 mg/dL (70-105); Magnesium 2.1 mg/dL (1.6-2.6); Osmolality,Calculated 298 (280-300); Potassium 3.9 mEq/L (3.5-5.1); Sodium 143 mEq/L (136-145); eGFR For African Americans > 60 (> 60); eGFR For Non-African Americans > 60 (> 60)
[2017-10-18 06:21] LABS: Basophils # 0.1 K/mcL (0.0-0.2); Basophils % 0.7 %; Eosinophils # 0.4 K/mcL (0.0-0.6); Eosinophils % 3.5 %; Hematocrit 53.5 % (37.5-50.1); Hemoglobin 16.6 g/dL (12.9-16.9); Immature Granulocytes % 0.9 % (0-4); Immature Platelets 3.1 % (1.1-6.1); Lymphocytes # 2.2 K/mcL (0.6-4.6); Lymphocytes % 18.5 %; Mean Corpuscular Hemoglobin 28.3 pg (28.0-33.3); Mean Corpuscular Volume 91.1 fL (83.0-100.0); Monocytes # 1.1 K/mcL (0.0-1.3); Monocytes % 9.2 %; Neutrophils # 8.2 K/mcL (1.6-8.9); Platelet Count 211 K/mcL (140-400); Red Blood Count 5.87 M/mcL (4.19-5.50); Red Cell Distribution Width 13.7 % (11.5-14.5); Segmented Neutrophils % 67.2 %
--- NOTE | 2017-10-18 06:34 | Internal Med History&Physical ---
Date of Encounter: 10/18/17 Time of Encounter: 02:00 Internal Medicine - H&P: HPI Chief complaint: Bilateral leg swelling Admitted From: Home Plans for Post Hospital Care: Home History of present illness: Mr. Zamora is a 32 year old male presented to ER for increased abdominal wall and bilateral leg swelling. Past medical history is significant for TORIN, COPD, morbid obesity, diastolic CHF. Patient said he has increased bilateral leg swelling and abdominal wall swelling. Patient has recent echocardiogram, which shows moderate diastolic dysfunction. Patient is not on any diuretics. Patient has chronic shortness of breath, which is not significantly increased. Patient cannot lay flat for sleeping for quite long time. Patient denies chest pain, nausea, or vomiting. In the emergency room, chest x-ray shows pulmonary vascular congestion. Patient was admitted for CHF exacerbation. Past Med Surg Social Fam HX - Past Medical History Medical history: arthritis, asthma, COPD, migraine Psychiatric history: no psych history - Past Surgical History Surgical History: orthopedic, other, other - Social History Smoking Status: Current every day smoker Smokeless Tobacco Status: No Alcohol use: none Drug use: none - Family History Mother History Unknown: Yes Internal Medicine - H&P: Meds Aleve 08/13/17 [History] Imitrex 08/13/17 [History] Protonix 08/13/17 [History] Sulfamethoxazole/Trimeth DS [Bactrim DS] 1 each PO BID #14 tablet 08/13/17 [Rx] Vicodin 08/13/17 [History] 3 Allergy/AdvReac Type Severity Reaction Status Date / Time adhesive tape Allergy Rash Verified 10/15/17 10:19 All Systems PM: A 10-system review of systems was performed and is negative for pertinent findings except as documented above in the HPI. - Constitutional Vitals: Temp Pulse Resp BP Pulse Ox 98.1 F 107 18 136/83 82 10/18/17 04:00 10/18/17 04:00 10/18/17 04:00 10/18/17 04:00 10/18/17 04:00 General appearance: Present: A&O X 3, morbidly obese, no acute distress, answers questions appropriately - Head Head exam: Present: atraumatic, normocephalic - Eye Eye exam: Present: PERRL, conjuntiva pink, sclera anicteric Pupils: Present: PERRL - Neck Neck exam general surgery: Present: supple, trachea midline. Absent: lymphadenopathy - Respiratory Respiratory exam: Present: CTAB. Absent: accessory muscle use, rales, rhonchi, wheezes - Cardiovascular Cardiovascular exam: Present: RRR, +S1, +S2. Absent: diastolic murmur, gallop, rubs, systolic murmur - GI/Abdominal GI/Abdominal exam: Present: normal bowel sounds, soft, no peritoneal signs. Absent: distended, tenderness Additional comments: Abdominal wall swelling - Extremities Exam Extremities exam: Present: pedal edema (Bilateral pitting pedal edema), warm, radial pulses palpable and symmetrical. Absent: calf tenderness, cyanotic - Neurological Exam Neurological exam: Present: CN II-XII intact, oriented X3, no focal deficits. Absent: pronater drift, facial droop, speech deficit - Skin Skin exam: Present: dry, intact Internal Med - H&P Results - Labs CBC & Chem 7: 10/18/17 03:47 10/18/17 03:47 Labs: Short CBC 10/18/17 Range/Units 03:47 WBC 12.1 H (4.3-11.1) K/mcL Hgb 16.6 (12.9-16.9) g/dL Hct 53.5 H (37.5-50.1) % Plt Count 211 (140-400) K/mcL Neutrophils # 8.2 (1.6-8.9) K/mcL BMP 10/18/17 03:47 Sodium 143 Potassium 3.9 Chloride 102 Carbon Dioxide 33 H BUN 15 Creatinine 0.66 L Glucose 114 H Calcium 9.4 - Assessment and plan (1) CHF exacerbation Current Visit: Yes Status: Acute Assessment and plan: Patient has a recent echocardiogram shows moderate diastolic dysfunction. Patient has increased leg swelling. Patient has pulmonary vascular congestion on chest x-ray. BNP is within normal limits. But the patient is morbid obese, BNP can be falsely low. Consider CHF exacerbation. - Place patient on cardiac and fluid restriction diet - Strict I and O - Lasix 40 mg IV daily Qualifiers: Heart failure type: diastolic Qualified Code(s): I50.33 - Acute on chronic diastolic (congestive) heart failure (2) Anasarca Current Visit: Yes Status: Acute Assessment and plan: Most likely due to CHF exacerbation. Management as above (3) Hypoxia Current Visit: Yes Status: Acute Assessment and plan: May be multifactorial including COPD, hypoventilation due to morbid obesity, TORIN. Will give patient oxygen supportive treatment. Patient needs home oxygen qualification evaluation upon discharge. (4) DVT prophylaxis Current Visit: No Status: Acute Assessment and plan: Heparin subcutaneously (5) Morbid obesity with BMI of 60.0-69.9, adult Current Visit: No Status: Acute Assessment and plan: Needs lifestyle modification (6) Tobacco abuse Current Visit: No Status: Acute Assessment and plan: Smoking cessation education. Patient said he does not want nicotine patch. (7) TORIN (obstructive sleep apnea) Current Visit: No Status: Suspected Assessment and plan: Patient refused to use CPAP or BiPAP. He has not started to use CPAP at home yet. Place patient on oxygen and continuous pulse oximetry monitoring. - Time Spent With Patient Total time spent is greater than 50% in coordination of care (as documented) at patient's floor/unit and/or counseling patient: 40 minutes Greater than 35 minutes
[2017-10-18] MEDS ORDERED: Furosemide 40 MG/4 ML VIAL IVP SCH ×2 (09:00→21:00)
--- NOTE | 2017-10-18 09:30 | Internal Med Progress Note ---
Date of Encounter: 10/18/17 Time of Encounter: 09:30 - Assessment and plan (1) Obesity hypoventilation syndrome Current Visit: Yes Status: Acute Assessment and plan: ABG showed CO2 retenetion and labs showed elevated bIcarb. Will place on bipap. Pulmonary recs appreciated (2) Acute respiratory failure with hypoxia Current Visit: No Status: Acute Assessment and plan: See #1 aleksandrley 2/2 to OHs and diastiolic CHF. Continue lasix and BIPAP (3) CHF exacerbation Current Visit: Yes Status: Acute Assessment and plan: Patient has a recent echocardiogram shows moderate diastolic dysfunction. Patient has increased leg swelling. Patient has pulmonary vascular congestion on chest x-ray. BNP is within normal limits. But the patient is morbid obese, BNP can be falsely low. Consider CHF exacerbation. - Place patient on cardiac and fluid restriction diet - Strict I and O - Lasix 40 mg IV daily (4) DVT prophylaxis Current Visit: No Status: Acute Assessment and plan: Heparin subcutaneously (5) Morbid obesity with BMI of 60.0-69.9, adult Current Visit: No Status: Acute Assessment and plan: Needs lifestyle modification (6) Tobacco abuse Current Visit: No Status: Acute Assessment and plan: Smoking cessation education. Patient said he does not want nicotine patch. (7) TORIN (obstructive sleep apnea) Current Visit: No Status: Suspected Assessment and plan: Patient refused to use CPAP or BiPAP. He has not started to use CPAP at home yet. Place patient on oxygen and continuous pulse oximetry monitoring. (8) Anasarca Current Visit: Yes Status: Acute Assessment and plan: Most likely due to CHF exacerbation. Management as above - Time Spent With Patient Total time spent is greater than 50% in coordination of care (as documented) at patient's floor/unit and/or counseling patient: - Subjective Interval history: No acute events overnight - Constitutional Vitals: Temp Pulse Resp BP Pulse Ox 98.3 F 91 15 131/80 93 10/18/17 07:47 10/18/17 07:47 10/18/17 07:47 10/18/17 07:47 10/18/17 08:20 General appearance: Present: A&O X 3, morbidly obese, no acute distress, answers questions appropriately - Head Head exam: Present: atraumatic, normocephalic - Eye Eye exam: Present: PERRL, conjuntiva pink, sclera anicteric Pupils: Present: PERRL - Neck Neck exam general surgery: Present: supple, trachea midline. Absent: lymphadenopathy - Respiratory Respiratory exam: Present: CTAB. Absent: accessory muscle use, rales, rhonchi, wheezes - Cardiovascular Cardiovascular exam: Present: RRR, +S1, +S2. Absent: diastolic murmur, gallop, rubs, systolic murmur - GI/Abdominal GI/Abdominal exam: Present: normal bowel sounds, soft, no peritoneal signs. Absent: distended, tenderness - Extremities Exam Extremities exam: Present: warm, radial pulses palpable and symmetrical. Absent : calf tenderness, cyanotic, pedal edema - Neurological Exam Neurological exam: Present: CN II-XII intact, oriented X3, no focal deficits. Absent: pronater drift, facial droop, speech deficit - Skin Skin exam: Present: dry, intact Internal Medicine: Result - Labs CBC & Chem 7: 10/18/17 03:47 10/18/17 03:47 Labs: Short CBC 10/18/17 Range/Units 03:47 WBC 12.1 H (4.3-11.1) K/mcL Hgb 16.6 (12.9-16.9) g/dL Hct 53.5 H (37.5-50.1) % Plt Count 211 (140-400) K/mcL Neutrophils # 8.2 (1.6-8.9) K/mcL BMP 10/18/17 03:47 Sodium 143 Potassium 3.9 Chloride 102 Carbon Dioxide 33 H BUN 15 Creatinine 0.66 L Glucose 114 H Calcium 9.4 Consult Discharge Plan - Plan Referrals: Roberto Boudreaux MD [Primary Care Provider] - Prescriptions: Furosemide [Lasix] 40 mg PO DAILY #60 tab
--- NOTE | 2017-10-18 09:46 | Discharge Summary ---
Orders not resulted at time of discharge: Pending orders 10/18/17 09:22 ABG [Arterial Blood Gas] Routine 10/19/17 04:00 Basic Metabolic Panel AM 0400 CBC [Complete Blood Count] [HEME] AM 0400 Magnesium AM 0400 Phosphorous AM 0400 10/20/17 04:00 Basic Metabolic Panel AM 0400 CBC [Complete Blood Count] [HEME] AM 0400 10/21/17 04:00 Basic Metabolic Panel AM 0400 CBC [Complete Blood Count] [HEME] AM 0400 10/22/17 04:00 Basic Metabolic Panel AM 0400 CBC [Complete Blood Count] [HEME] AM 0400 10/23/17 04:00 Basic Metabolic Panel AM 0400 CBC [Complete Blood Count] [HEME] AM 0400 10/24/17 04:00 Basic Metabolic Panel AM 0400 CBC [Complete Blood Count] [HEME] AM 0400 Date of Encounter: 10/19/17 Time of Encounter: 09:30 - Discharge Diagnosis (1) Acute respiratory failure with hypoxia Priority: Primary Status: Acute Assessment and Plan: Patient came in with bilateral leg swelling and acute hypoxic hypercapneic respiratory failure likely 2/2 to OHS and diastolic CHF. He was diuresed with lasix and started on BIPAP. He was seen by pulmonary who agreed with plan of care and to expedite the delivery of his CPAP machine to his home. With a sooner than anticipated recovery, he was discharged home in a stable condition (2) Obesity hypoventilation syndrome Priority: Secondary Status: Acute Assessment and Plan: ABG showed CO2 retention and labs showed elevated bIcarb. Managed on bipap. Pulmonary recs appreciated (3) CHF exacerbation Priority: Secondary Status: Acute Assessment and Plan: Patient has a recent echocardiogram shows moderate diastolic dysfunction. Patient has increased leg swelling. Patient has pulmonary vascular congestion on chest x-ray. BNP is within normal limits. But the patient is morbid obese, BNP can be falsely low. He was managed for acute diastolic CHF with IV lasix. He will be discharged home on lasix. Qualifiers: Heart failure type: diastolic Qualified Code(s): I50.33 - Acute on chronic diastolic (congestive) heart failure (4) DVT prophylaxis Priority: Secondary Status: Acute Assessment and Plan: Heparin subcutaneously (5) Morbid obesity with BMI of 60.0-69.9, adult Priority: Secondary Status: Acute Assessment and Plan: Needs lifestyle modification. CPAP at home (6) Tobacco abuse Priority: Secondary Status: Acute Assessment and Plan: Smoking cessation education. Patient said he does not want nicotine patch. (7) TORIN (obstructive sleep apnea) Priority: Secondary Status: Suspected Assessment and Plan: Patient refused to use CPAP or BiPAP. He has not started to use CPAP at home yet. Place patient on oxygen and continuous pulse oximetry monitoring. (8) Anasarca Priority: Secondary Status: Acute Assessment and Plan: Most likely due to CHF exacerbation. Management as above Hospital course: Mr. Zamora is a 32 year old male - Time Spent with Patient Total time spent providing and/or coordinating discharge services: - Discharge Medications Prescriptions: Furosemide [Lasix] 40 mg PO DAILY #60 tab Home Medications: Albuterol Sulfate [Ventolin Hfa] 2 puff IH Q4-6H PRN 10/18/17 [History] Doxycycline Hyclate [Vibramycin] 100 mg PO BID 10/18/17 [History] Furosemide [Lasix] 40 mg PO DAILY #60 tab 10/18/17 [Rx] HYDROcodone/Acet 5/325 mg [[place] 5-325 mg] 1 tab PO BID PRN 10/18/17 [History] Naproxen Sodium [Aleve] 440 mg PO BID PRN 10/18/17 [History] Pantoprazole Sodium [Protonix] 40 mg PO BID PRN 10/18/17 [History] SUMAtriptan Succinate [Imitrex] 100 mg PO Q2H PRN 10/18/17 [History] Allergies/Adverse Reactions: 3 Allergy/AdvReac Type Severity Reaction Status Date / Time adhesive tape AdvReac Rash Verified 10/18/17 08:24 Date of admission: 10/18/17 01:37 Primary care physician: Roberto Boudreaux MD - Constitutional Vitals: Temp Pulse Resp BP Pulse Ox 98.3 F 91 15 131/80 93 10/18/17 07:47 10/18/17 07:47 10/18/17 07:47 10/18/17 07:47 10/18/17 08:20 General appearance: Present: A&O X 3, morbidly obese, no acute distress, answers questions appropriately Exam: Morbidly obese gentleman - Head Head exam: Present: atraumatic, normocephalic - Eye Eye exam: Present: PERRL, conjuntiva pink, sclera anicteric Pupils: Present: PERRL - Neck Neck exam general surgery: Present: supple, trachea midline. Absent: lymphadenopathy - Respiratory Respiratory exam: Present: CTAB. Absent: accessory muscle use, rales, rhonchi, wheezes - Cardiovascular Cardiovascular exam: Present: RRR, +S1, +S2. Absent: diastolic murmur, gallop, rubs, systolic murmur - GI/Abdominal GI/Abdominal exam: Present: normal bowel sounds, soft, no peritoneal signs. Absent: distended, tenderness - Extremities Exam Extremities exam: Present: warm, radial pulses palpable and symmetrical. Absent : calf tenderness, cyanotic, pedal edema - Neurological Exam Neurological exam: Present: CN II-XII intact, oriented X3, no focal deficits. Absent: pronater drift, facial droop, speech deficit - Skin Skin exam: Present: dry, intact - Patient Status Disposition: Home, Self-Care - Discharge Instructions Instructions: Furosemide (By mouth), Heart Failure (DC) Follow Up With: Roberto Boudreaux MD [Primary Care Provider] - 10/25/17 10:30 am (Please follow up as schedule)
[2017-10-18] MEDS ORDERED: SUMAtriptan succinate 50 MG TABLET PO PRN (09:54)
[2017-10-18 09:55] LABS: ABG Base Excess 10 mEq/L (-2 to 3); ABG HCO3 40 mEq/L (21-27); ABG Oxygen Saturation 88 % (95-98); ABG PCO2 74 mmHg (35-45); ABG PH 7.35 pH Units (7.32-7.45); ABG PO2 60 mmHg (85-104); ABG TCO2 43 mEq/L (20-26)
[2017-10-18] MEDS: SUMAtriptan succinate 50 MG TABLET PO PRN (10:04)
--- NOTE | 2017-10-18 11:39 | Pulmonology Consult Note ---
<Simeon Evans - Last Filed: 10/18/17 14:12> Date of Encounter: 10/18/17 Time of Encounter: 12:00 Assessment and Plan (1) Obesity hypoventilation syndrome Current Visit: Yes Status: Acute Clinically the patient is obese with excessive daytime sleepiness as well as snoring respirations. Sleep study 10/13/17 IMPRESSION: 1. Severe TORIN apnea with AHI of 93 per hour. 2. Respiratory events are associated with severe oxygen desaturations with a esme of 53%. 3. Severe sleep disruption associated with respiratory events. 4. Patient was unable to tolerate CPAP/BPAP therapy. Study completed as baseline study. 5. Persistent nocturnal hypoxemia requiring oxygen supplement at 4 LPM. Plan: - Recommend to expedite the patient's delivery of CPAP machine to home. - Lifestyle modifications with diet and exercise - Supplemental oxygen as needed. (2) TORIN (obstructive sleep apnea) Current Visit: No Status: Suspected As above. (3) Tobacco abuse Current Visit: No Status: Acute Tobacco cessation counseling. History of Present Illness Consult date: 10/18/17 Requesting physician: Madeline Marti Reason for consult: dyspnea, other (leg swelling) Chief complaint: Leg swelling History of present illness: 32-year-old male persists for evaluation of lower leg swelling. Patient states that she has had lower leg swelling for the past 5 days. Patient also notes feeling short of breath. Patient notes that he has been having increasing amounts of sleep. Patient does snore. Patient denies any fevers or cough. No chest pain. Patient denies history of congestive heart failure. Patient states he is feeling better than he has since being admitted to the hospital. Patient states that he does not use a CPAP at home. States that he did have a sleep study done and has a CPAP that is scheduled to arrive next Sunday. Patient reports a smoking history with current every day smoker with little over a pack a day greater than the last 10 years. Patient denies history of diabetes, high blood pressure. Past Med Surg Social Fam HX - Past Medical History Medical history: arthritis, asthma, COPD, migraine Psychiatric history: no psych history - Past Surgical History Surgical History: orthopedic, other, other - Social History Smoking Status: Current every day smoker Smokeless Tobacco Status: No Alcohol use: none Drug use: none - Family History Mother History Unknown: Yes Medications and Allergies Albuterol Sulfate [Ventolin Hfa] 2 puff IH Q4-6H PRN 10/18/17 [History] Doxycycline Hyclate [Vibramycin] 100 mg PO BID 10/18/17 [History] Furosemide [Lasix] 40 mg PO DAILY #60 tab 10/18/17 [Rx] HYDROcodone/Acet 5/325 mg [[place] 5-325 mg] 1 tab PO BID PRN 10/18/17 [History] Naproxen Sodium [Aleve] 440 mg PO BID PRN 10/18/17 [History] Pantoprazole Sodium [Protonix] 40 mg PO BID PRN 10/18/17 [History] SUMAtriptan Succinate [Imitrex] 100 mg PO Q2H PRN 10/18/17 [History] 3 Allergy/AdvReac Type Severity Reaction Status Date / Time adhesive tape AdvReac Rash Verified 10/18/17 08:24 All Systems: The remainder of the systems were reviewed and are negative - Constitutional Constitutional: as per HPI, daytime sleepiness, snoring, no fever(s) - Cardiovascular Cardiovascular: as per HPI, dyspnea, edema, no chest pain, no diaphoresis, no dyspnea on exertion - Respiratory Respiratory: as per HPI, dyspnea, no cough - Gastrointestinal Gastrointestinal: as per HPI - Genitourinary Genitourinary: as per HPI - Integumentary Integumentary: as per HPI Physical Examination Vital Signs: Vital Signs, Last 4 Hours Temp Pulse Resp BP Pulse Ox 10/18/17 11:33 97.9 F 98 15 125/79 95 10/18/17 08:20 93 10/18/17 07:47 98.3 F 91 15 131/80 93 General appearance: no acute distress, other (Obese) Eyes: nonicteric ENT: oropharynx moist Neck: supple Effort: normal Inspection: normal Auscultation: bilateral: clear Cardiovascular: regular rate and rhythm Gastrointestinal: normoactive bowel sounds Integumentary: normal Extremities: no cyanosis, no clubbing Musculoskeletal: no deformities Gait: normal gait, normal posture normal mental status, non-focal exam mood appropriate Results - Laboratory Findings CBC and BMP: 10/18/17 03:47 10/18/17 03:47 ABG ABG pH 7.35 pH Units (7.32-7.45) 10/18/17 09:51 ABG pCO2 74 mmHg (35-45) H* 10/18/17 09:51 ABG pO2 60 mmHg (85-104) L 10/18/17 09:51 ABG O2 Saturation 88 % (95-98) L 10/18/17 09:51 Abnormal lab findings: Abnormal lab results WBC 12.1 K/mcL (4.3-11.1) H 10/18/17 03:47 RBC 5.87 M/mcL (4.19-5.50) H 10/18/17 03:47 Hct 53.5 % (37.5-50.1) H 10/18/17 03:47 MCHC 31.0 g/dL (31.6-35.5) L 10/18/17 03:47 ABG pCO2 74 mmHg (35-45) H* 10/18/17 09:51 ABG pO2 60 mmHg (85-104) L 10/18/17 09:51 ABG HCO3 40 mEq/L (21-27) H 10/18/17 09:51 ABG Total CO2 43 mEq/L (20-26) H 10/18/17 09:51 ABG O2 Saturation 88 % (95-98) L 10/18/17 09:51 ABG Base Excess 10 mEq/L (-2 to 3) H 10/18/17 09:51 Carbon Dioxide 33 mEq/L (23-29) H 10/18/17 03:47 Creatinine 0.66 mg/dL (0.70-1.30) L 10/18/17 03:47 Glucose 114 mg/dL (70-105) H 10/18/17 03:47 Serum Total Protein 6.1 g/dL (6.4-8.9) L 10/17/17 22:44 Globulin 2.3 g/dL (2.4-3.5) L 10/17/17 22:44 Ur Specific [place] 1.026 (1.010-1.025) H 10/18/17 00:05 Ur Squamous Epith Cells Moderate per lpf (None-Few) H 10/18/17 00:05 - Clinical Findings Intake & Output: Intake & Output 10/17/17 10/18/17 10/18/17 23:59 07:59 15:59 Intake Total 237 / 237 240 / 240 Output Total 1150 / 1150 0 / 0 Balance -913 / -913 240 / 240 Weight 220.6 kg Consult Discharge Plan - Plan Referrals: Roberto Boudreaux MD [Primary Care Provider] - Prescriptions: Furosemide [Lasix] 40 mg PO DAILY #60 tab <Amanda Krishnan M - Last Filed: 10/18/17 16:09> Date of Encounter: 10/18/17 All Systems: The remainder of the systems were reviewed and are negative Physical Examination Vital Signs: Vital Signs, Last 4 Hours Temp Pulse Resp BP Pulse Ox 10/18/17 15:57 98 F 81 12 125/80 99 Results - Laboratory Findings CBC and BMP: 10/18/17 03:47 10/18/17 03:47 ABG ABG pH 7.35 pH Units (7.32-7.45) 10/18/17 09:51 ABG pCO2 74 mmHg (35-45) H* 10/18/17 09:51 ABG pO2 60 mmHg (85-104) L 10/18/17 09:51 ABG O2 Saturation 88 % (95-98) L 10/18/17 09:51 Abnormal lab findings: Abnormal lab results WBC 12.1 K/mcL (4.3-11.1) H 10/18/17 03:47 RBC 5.87 M/mcL (4.19-5.50) H 10/18/17 03:47 Hct 53.5 % (37.5-50.1) H 10/18/17 03:47 MCHC 31.0 g/dL (31.6-35.5) L 10/18/17 03:47 ABG pCO2 74 mmHg (35-45) H* 10/18/17 09:51 ABG pO2 60 mmHg (85-104) L 10/18/17 09:51 ABG HCO3 40 mEq/L (21-27) H 10/18/17 09:51 ABG Total CO2 43 mEq/L (20-26) H 10/18/17 09:51 ABG O2 Saturation 88 % (95-98) L 10/18/17 09:51 ABG Base Excess 10 mEq/L (-2 to 3) H 10/18/17 09:51 Carbon Dioxide 33 mEq/L (23-29) H 10/18/17 03:47 Creatinine 0.66 mg/dL (0.70-1.30) L 10/18/17 03:47 Glucose 114 mg/dL (70-105) H 10/18/17 03:47 Serum Total Protein 6.1 g/dL (6.4-8.9) L 10/17/17 22:44 Globulin 2.3 g/dL (2.4-3.5) L 10/17/17 22:44 Ur Specific [place] 1.026 (1.010-1.025) H 10/18/17 00:05 Ur Squamous Epith Cells Moderate per lpf (None-Few) H 10/18/17 00:05 - Clinical Findings Intake & Output: Intake & Output 10/18/17 10/18/17 10/18/17 07:59 15:59 23:59 Intake Total 237 / 237 240 / 240 Output Total 1150 / 1150 0 / 0 700 / 700 Balance -913 / -913 240 / 240 -700 / -700 Weight 220.6 kg - Attending Attestation I examined this patient and my medical decision-making was reviewed with the Resident Physician. I agree with the documented findings, disposition and treatment plan as described except to the extent set forth below. Patient seen and examined. Labs, radiology, chart personally reviewed. 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 Clearly patient with obesity hypoventilation and obstructive sleep apnea. Patient has morbid obesity and weight loss recommended. If his machine can be expedited to be delivered then patient can be discharged home to be using case noninvasive ventilation. Follow up with sleep lab regarding possible expediting delivery of his machine. Cardiovascular: stable Thank you very much for consultation
[2017-10-18] MEDS: *HR* Heparin 5,000 UNIT/ML VIAL SQ SCH ×2 (14:01→21:59)
--- NOTE | 2017-10-18 15:13 | Electrocardiograph Report ---
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
[2017-10-18] MEDS: Furosemide 40 MG/4 ML VIAL IVP SCH (15:58)
[2017-10-18] MEDS: *HR* HYDROcodone/Acet 5/325 mg TABLET PO PRN (21:59)
[2017-10-19 04:29] LABS: Basophils # 0.1 K/mcL (0.0-0.2); Basophils % 0.6 %; Eosinophils # 0.3 K/mcL (0.0-0.6); Eosinophils % 2.9 %; Hematocrit 53.7 % (37.5-50.1); Hemoglobin 16.7 g/dL (12.9-16.9); Immature Granulocytes % 0.6 % (0-4); Lymphocytes # 2.2 K/mcL (0.6-4.6); Mean Corpuscular HGB Conc 31.1 g/dL (31.6-35.5); Mean Corpuscular Hemoglobin 28.3 pg (28.0-33.3); Mean Platelet Volume 9.8 fL (9.4-12.4); Monocytes # 0.9 K/mcL (0.0-1.3); Monocytes % 7.9 %; Neutrophils # 7.4 K/mcL (1.6-8.9); Platelet Count 197 K/mcL (140-400); Red Cell Distribution Width 13.8 % (11.5-14.5)
[2017-10-19 04:45] LABS: BUN/Creatinine Ratio 20 (6-26); Blood Urea Nitrogen 17 mg/dL (6-20); Calcium 9.7 mg/dL (8.6-10.3); Carbon Dioxide 36 mEq/L (23-29); Chloride 98 mEq/L (98-107); Glucose 135 mg/dL (70-105); Magnesium 2.2 mg/dL (1.6-2.6); Osmolality,Calculated 296 (280-300); Phosphorous 4.4 mg/dL (2.7-4.5); Potassium 3.9 mEq/L (3.5-5.1); Sodium 141 mEq/L (136-145); eGFR For African Americans > 60 (> 60); eGFR For Non-African Americans > 60 (> 60)
[2017-10-19] MEDS: *HR* Heparin 5,000 UNIT/ML VIAL SQ SCH (06:39)
[2017-10-19] MEDS: Furosemide 40 MG/4 ML VIAL IVP SCH (09:24)
[2017-10-19] MEDS: SUMAtriptan succinate 50 MG TABLET PO PRN (09:28)
[2017-10-19 11:34] VITALS: BP 116/79
[2017-10-19] MEDS: *HR* HYDROcodone/Acet 5/325 mg TABLET PO PRN (12:27)
== END 2017-10-19 13:19 | disposition home or self-care (01) ==
LOC: 2ANU 21:54 → EMEROO 21:54 → 2ANU 10-18 01:59
PROVIDERS: ADMIT Pediatrics; ATTEND Pediatrics